=== PATIENT | male | born 1985 | race Caucasian/White ===

== ENCOUNTER 2019-07-21 00:55 | Emergency (ER) | payer BC ==
--- NOTE | 2019-07-21 01:07 | EDM.PDOC ---
ED HPI GENERAL MEDICAL PROBLEM - General Chief Complaint: ENT Problem Stated Complaint: PAIN ON RIGHT SIDE OF FACE Time Seen by Provider: 07/21/19 00:59 - History of Present Illness INITIAL COMMENTS - FREE TEXT/NARRATIVE: HISTORY AND PHYSICAL: History of present illness: Patient is a 33-year-old white male who presents with a concern of right facial and dental pain he has a cracked right upper molar is unsure if this is the etiology is been no fever chills nausea vomiting or other complaints Review of systems: As per history of present illness and below otherwise all systems reviewed and negative. Past medical history: As per history of present illness and as reviewed below otherwise noncontributory. Surgical history: As per history of present illness and as reviewed below otherwise noncontributory. Social history: No reported history of drug or alcohol abuse. Family history: As per history of present illness and as reviewed below otherwise noncontributory. Physical exam: HEENT: Atraumatic, normocephalic, pupils reactive, negative for conjunctival pallor or scleral icterus, mucous membranes moist, throat clear, neck supple, nontender, trachea midline. Patient has multiple dental caries including one in the right upper molar with secondary dental fracture Lungs: Clear to auscultation, breath sounds equal bilaterally, chest nontender. Heart: S1S2, regular, negative for clicks, rubs, or JVD. Abdomen: Soft, nondistended, nontender. Negative for masses or hepatosplenomegaly. Negative for costovertebral tenderness. Pelvis: Stable nontender. Genitourinary: Deferred. Rectal: Deferred. Extremities: Atraumatic, negative for cords or calf pain. Neurovascular unremarkable. Neuro: Awake, alert, oriented. Cranial nerves II through XII unremarkable. Cerebellum unremarkable. Motor and sensory unremarkable throughout. Exam nonfocal. Diagnostics: None Therapeutics: Dental balls Toradol 60 mg IM Impression: #1 dentalgia number to rule out dental abscess Definitive disposition and diagnosis as appropriate pending reevaluation and review of above. RIGHT MOUTH Pain Score (Numeric/FACES): 10 - Related Data Allergies Allergy/AdvReac Type Severity Reaction Status Date / Time meperidine [From Demerol] Allergy Difficulty Verified 07/21/19 01:02 Breathing Penicillins Allergy Difficulty Verified 07/21/19 01:02 Breathing Home Meds: Home Meds . [Unable to Verify Home Med List] 07/21/19 [History] ED ROS GENERAL - Review of Systems Review Of Systems: ROS reveals no pertinent complaints other than HPI. ED EXAM, GENERAL - Physical Exam Exam: See Below (See dictation) Course - Vital Signs Last Recorded V/S: Last Vital Signs Temp 36.3 C 07/21/19 00:59 Pulse 74 07/21/19 00:59 Resp 16 07/21/19 00:59 BP 151/96 H 07/21/19 00:59 Pulse Ox 95 07/21/19 00:59 Departure - Departure Time of Disposition: :06 Disposition: Home, Self-Care 01 Condition: Good Clinical Impression: Dentalgia - Discharge Information Additional Instructions: The following information is given to patients seen in the emergency department who are being discharged to home. This information is to outline your options for follow-up care. We provide all patients seen in our emergency department with a follow-up referral. The need for follow-up, as well as the timing and circumstances, are variable depending upon the specifics of your emergency department visit. If you don't have a primary care physician on staff, we will provide you with a referral. We always advise you to contact your personal physician following an emergency department visit to inform them of the circumstance of the visit and for follow-up with them and/or the need for any referrals to a consulting specialist. The emergency department will also refer you to a specialist when appropriate. This referral assures that you have the opportunity for followup care with a specialist. All of these measure are taken in an effort to provide you with optimal care, which includes your followup. Under all circumstances we always encourage you to contact your private physician who remains a resource for coordinating your care. When calling for followup care, please make the office aware that this follow-up is from your recent emergency room visit. If for any reason you are refused follow-up, please contact the [facility] emergency department at and asked to speak to the emergency department charge nurse. Clindamycin as prescribed diclofenac as prescribed follow-up dentist as discussed return as needed as discussed
[2019-07-21] MEDS ORDERED: Benzocaine 20% Topical Spray UD MUCMEM ONE (01:08)
[2019-07-21] MEDS ORDERED: Lidocaine 2% Viscous Solution 15 ML Cup PO ONE (01:08)
[2019-07-21] MEDS ORDERED: Ketorolac 60 MG/2 ML SDV IM ONE (01:08)
== END 2019-07-21 01:30 | disposition home or self-care (01) ==
LOC: MW.ED 00:55
DX: K02.9 Dental caries, unspecified (principal); Z88.0 Allergy status to penicillin; Z88.5 Allergy status to narcotic agent
CPT/HCPCS: 96372; 99283; A9270; J1885; 99282